=== PATIENT | male | born 1975 | race Caucasian/White ===

== ENCOUNTER 2018-06-06 19:48 | Emergency (ER) | payer MEDICAID, SELFPAY ==
[2018-06-06] VITALS (20 sets, daily range): BP systolic 115–137; BP diastolic 53–80; PULSE 63–85; RESP 12–20; TEMP 37.3; O2SAT 93–96
--- NOTE | 2018-06-06 19:54 | DI.RAD_ITS ---
SYMPTOM/DIAGNOSIS: CHEST PAIN PA AND LATERAL CHEST: 06/06/18 The heart is normal in size. The lungs are clear. The mediastinal structures and pleura appear intact. CONCLUSION: Normal chest.
--- NOTE | 2018-06-06 20:00 | W.ED.GENAD ---
Discharge Plan Disposition Patient Disposition: HOME Condition: Stable Discharge Details Chief Complaint: Chest Pain Clinical Impression: Chest pain Primary Care Provider: Gianni Zepeda ED Provider: Gaurav Carrizales Home Meds and New Rx's Prescriptions: No Action citalopram [Celexa] 20 mg Tablet 20 mg PO DAILY RF: 0 Lyrica 150 mg Capsule 150 mg PO BID RF: 0 Discharge Instructions Instructions: Chest Pain (ED) Additional Instructions: follow up with your primary care provider within a week and discuss having stress testing if you have severe worsening pain or difficulty breathing return to the emergency department Medical Decision Making 42 yo male who denies chronic medical problems comes in with complaints of chest discomfort. He states about an hour or so ago he started to have anterior chest burning and tightness. He denies having this in the past. Denies any hx of smoking or hx of cardiac disease. He denies pain with exertion and walked to the exam room in no distress and denies pain with walking or increased pain. I suspect gerd, heart score is 1, will obtain troponin and ecg. Will also obtain d dimer to eval for possible PE. HE has no tearing back pain and normal vascular exam so doubt dissection pt remains stable, has pain when I palpate the right upper chest. Initial set of lab work and xray unremarkable. Given low heart score will repeat the troponin and ecg in 3 hours pt remains stable, only has pain with palpation, 2nd ekg unchanged and troponin negative. Advised f/u with pcp and discuss stress testing and return precautions given Differential Diagnosis acs, gerd, gastritis, pe, dissection Imaging Data Radiologic Study: Attestation: I personally reviewed and interpreted this imaging study as follows: Imaging: X-Ray My impression: no acute findings Lab Data Lab results reviewed: Yes I reviewed the patient's lab results. ECG Data Attestation: I personally reviewed and interpreted this ECG (s) as follows: Prior ECG tracings: not available for review Interpretation: sinus rhythm, rate of 68, pr 154, no acute ischemic st t wave findings HPI General Mode of arrival: ambulatory. Date/Time Provider Initiated Documentation: 06/06/18 19:54. Limitations to Documentation: no limitations. Information obtained by: patient. History of Present Illness 42 year old M presents to the emergency department with the chief complaint of chest pain, described as moderate, with intensity rated at 5. Quality is described as burning and aching, and is localized to the chest. Patient reports no radiation. Patient started experiencing this hour(s) (1) and it has been constant. No relieving factors improve symptom(s), No exacerbating factors reported . Patient notes no other symptoms.. Patient did receive the following treatments prior to arrival, none Related Data Home Medications Medication Instructions Recorded Confirmed citalopram [Celexa] 20 mg PO DAILY 06/06/18 06/06/18 pregabalin [Lyrica] 150 mg PO BID 06/06/18 06/06/18 Allergies Allergy/AdvReac Type Severity Reaction Status Date / Time No Known Allergies Allergy Unverified 05/16/15 15:05 Review of Systems Review of Systems All systems reviewed & are unremarkable except as noted in HPI and below Constitutional Denies chills, Denies fever(s) and Denies weakness Cardiovascular Denies dyspnea Respiratory Denies cough and Denies dyspnea Gastrointestinal Denies abdominal pain, Denies nausea and Denies vomiting Integumentary/Breasts Denies rash Neurologic Denies weakness [facility] Social History Smoking/Tobacco Use Status: Never Drug use: Never Do you feel safe at home: Yes Do you feel safe in your relationship?: Yes Exam Const General: no acute distress Orientation: alert HENMT Head: normal to inspection Ears: external ears normal General nose exam: external nose normal Mouth: moist mucous membranes Eyes General: appearance normal, both eyes and all related structures Neck Neck: normal visual inspection Resp Effort & Inspection: normal respiratory effort and able to speak in complete sentences Cardio Rate: regular rate Skin General skin exam: no rashes or lesions noted Neuro General: alert and oriented x3 Extrem General: normal to inspection Psych Mental Status: mental status grossly normal
--- NOTE | 2018-06-06 20:03 | ED.GENADUL_ITS ---
Discharge Plan Disposition Patient Disposition: HOME Condition: Stable Discharge Details Chief Complaint: Chest Pain Clinical Impression: Chest pain Primary Care Provider: Gianni Zepeda ED Provider: Gaurav Carrizales Home Meds and New Rx's Prescriptions: No Action citalopram [Celexa] 20 mg Tablet 20 mg PO DAILY RF: 0 Lyrica 150 mg Capsule 150 mg PO BID RF: 0 Discharge Instructions Instructions: Chest Pain (ED) Additional Instructions: follow up with your primary care provider within a week and discuss having stress testing if you have severe worsening pain or difficulty breathing return to the emergency department Medical Decision Making 42 yo male who denies chronic medical problems comes in with complaints of chest discomfort. He states about an hour or so ago he started to have anterior chest burning and tightness. He denies having this in the past. Denies any hx of smoking or hx of cardiac disease. He denies pain with exertion and walked to the exam room in no distress and denies pain with walking or increased pain. I suspect gerd, heart score is 1, will obtain troponin and ecg. Will also obtain d dimer to eval for possible PE. HE has no tearing back pain and normal vascular exam so doubt dissection pt remains stable, has pain when I palpate the right upper chest. Initial set of lab work and xray unremarkable. Given low heart score will repeat the troponin and ecg in 3 hours pt remains stable, only has pain with palpation, 2nd ekg unchanged and troponin negative. Advised f/u with pcp and discuss stress testing and return precautions given Differential Diagnosis acs, gerd, gastritis, pe, dissection Imaging Data Radiologic Study: Attestation: I personally reviewed and interpreted this imaging study as follows: Imaging: X-Ray My impression: no acute findings Lab Data Lab results reviewed: Yes I reviewed the patient's lab results. ECG Data Attestation: I personally reviewed and interpreted this ECG (s) as follows: Prior ECG tracings: not available for review Interpretation: sinus rhythm, rate of 68, pr 154, no acute ischemic st t wave findings HPI General Mode of arrival: ambulatory . Date/Time Provider Initiated Documentation: 06/06/18 19:54 . Limitations to Documentation: no limitations . Information obtained by: patient . History of Present Illness 42 year old M presents to the emergency department with the chief complaint of chest pain, described as moderate, with intensity rated at 5. Quality is described as burning and aching, and is localized to the chest. Patient reports no radiation. Patient started experiencing this hour(s) (1) and it has been constant. No relieving factors improve symptom(s), No exacerbating factors reported . Patient notes no other symptoms.. Patient did receive the following treatments prior to arrival, none Related Data Home Medications Medication Instructions Recorded Confirmed citalopram [Celexa] 20 mg PO DAILY 06/06/18 06/06/18 pregabalin [Lyrica] 150 mg PO BID 06/06/18 06/06/18 Allergies Allergy/AdvReac Type Severity Reaction Status Date / Time No Known Allergies Allergy Unverified 05/16/15 15:05 Review of Systems Review of Systems All systems reviewed & are unremarkable except as noted in HPI and below Constitutional Denies chills, Denies fever(s) and Denies weakness Cardiovascular Denies dyspnea Respiratory Denies cough and Denies dyspnea Gastrointestinal Denies abdominal pain, Denies nausea and Denies vomiting Integumentary/Breasts Denies rash Neurologic Denies weakness [facility] Social History Smoking/Tobacco Use Status: Never Drug use: Never Do you feel safe at home: Yes Do you feel safe in your relationship?: Yes Exam Const General: no acute distress Orientation: alert HENMT Head: normal to inspection Ears: external ears normal General nose exam: external nose normal Mouth: moist mucous membranes Eyes General: appearance normal, both eyes and all related structures Neck Neck: normal visual inspection Resp Effort & Inspection: normal respiratory effort and able to speak in complete sentences Cardio Rate: regular rate Skin General skin exam: no rashes or lesions noted Neuro General: alert and oriented x3 Extrem General: normal to inspection Psych Mental Status: mental status grossly normal
[2018-06-06] MEDS: Mylanta Suspension 30 ML CUP (20:17)
[2018-06-06] MEDS: Lidocaine 2% Viscous 15 ML CUP (20:17)
[2018-06-06 20:41] LABS: Abs Immature Grans 0.03 k/cumm (0.0-0.09); Absolute Basophil Count 0.03 k/cumm (0.0-0.2); Absolute Eosinophil Count 0.15 k/cumm (0.0-0.7); Absolute Lymphocyte Count 2.45 k/cumm (1.2-3.4); Absolute Monocyte Count 0.54 k/cumm (0.11-0.7); Absolute Neutrophil Count 3.49 k/cumm (1.2-6.7); Basophils % 0.4; Eosinophils % 2.2; HCT 44.8 % (40.0-50.0); HGB 14.9 g/dL (13.5-17.5); Immature Grans % 0.4; Lymphocytes % 36.6; Mean Corp. HGB Concentration 33.3 g/dL (32.0-36.0); Mean Corpuscular Hemoglobin 29.3 pg (27.0-33.0); Mean Corpuscular Volume 88.2 fL (80-95); Mean Platelet Volume 10.7 fL (8.0-11.0); Monocytes % 8.1; Neutrophils % 52.3; Platelet Count 176 x1000/uL (130-400); RBC 5.08 m/cumm (4.50-6.00); RBC Distribution Width 13.5 % (11.8-14.1); White Blood Cell Count 6.69 k/cumm (4.4-10.8)
[2018-06-06 20:49] LABS: ALT 51 U/L (12-78); AST 19 U/L (15-37); Albumin 3.7 g/dL (3.4-5.0); Alkaline Phosphatase 92 U/L (46-116); BUN 14 mg/dL (7-18); Bilirubin, Total 0.3 mg/dL (0.2-1.0); CREATININE 1.13 mg/dL (0.70-1.30); Calcium 8.4 mg/dL (8.5-10.1); Chloride 105 mmol/L (98-107); Glucose 103 mg/dL (70-100); Lipase 210 U/L (73-393); Magnesium 2.1 mg/dL (1.8-2.4); Potassium 3.9 mmol/L (3.5-5.1); Sodium 142 mmol/L (136-145); Total Protein 7.1 g/dL (6.4-8.2); Troponin I < 0.02 ng/mL (0.00-0.06)
[2018-06-06 21:03] LABS: D-Dimer 277 ng/mlFEU (<500)
--- NOTE | 2018-06-06 21:03 | DI.VRAD_ITS ---
EXAM: XR Chest, 2 Views EXAM DATE/TIME: 06/06/2018 7:55 PM CLINICAL HISTORY: 42 years old, male; Pain; Chest pain; Type not specified TECHNIQUE: Imaging protocol: XR of the chest, 2 views. COMPARISON: CR CHEST 2 VIEWS PA,LAT 02/07/2014 5:15 PM FINDINGS: Lungs: Unremarkable. No consolidation. Pleural space: Unremarkable. No pleural effusion. No pneumothorax. Heart/Mediastinum: Unremarkable. No cardiomegaly. Bones/joints: Lower cervical spine fusion. IMPRESSION: No acute finding. Dictated and Authenticated by: Lurdes Guadalupe MD. Ordering:SHARRI Nolasco MD
[2018-06-06] MEDS: Aspirin 81 MG CHEW 324 MG CH (21:46)
[2018-06-06 23:31] LABS: Troponin I < 0.02 ng/mL (0.00-0.06)
== END 2018-06-06 23:56 | disposition home or self-care (01) ==
PROVIDERS: Emergency Provider Emergency Medicine; PCP Family Medicine
DX: R07.9 Chest pain, unspecified (principal)
CPT/HCPCS: 36415; 80053; 83690; 93005; 99285; 71046; 83735; 84484; 85025; 85379; 93010; J3490